=== PATIENT | female | born 1945 | race Caucasian/White ===

== ENCOUNTER 2024-03-24 11:02 | Inpatient (IN) | payer MEDICARE, OTHER ==
[~2024-03-24] VITALS: Ht 157.5 cm; Wt 70.9 kg
[2024-03-24] MEDS: METOPROLOL SUCC *XL* 25MG TAB (TopROL *XL*) PO SCH (09:00)
[2024-03-24] MEDS ORDERED: ELIQ5TAB PO (11:13)
[2024-03-24] MEDS ORDERED: METO1TAB32 PO (11:13)
[2024-03-24] MEDS ORDERED: CVSTAB PO (11:13)
[2024-03-24] MEDS ORDERED: PRIL20TA2 PO (11:13)
[2024-03-24] MEDS: PERCOCET 5MG/325MG TAB PO ONE (11:47)
[2024-03-24] MEDS ORDERED: PERC5TAB12 PO (13:46)
[2024-03-24] MEDS ORDERED: OMEP-173 PO (14:28)
[2024-03-24] MEDS ORDERED: MULT-40 PO (14:28)
[2024-03-24] MEDS ORDERED: HOME MED LIST COMPLETE! XX SCH ×2 (14:30→16:50)
[2024-03-24 14:46] LABS: HEMATOCRIT 42.7 % (36.0-47.0); HEMOGLOBIN 14.7 g/dl (12.0-15.5); MEAN CORPUSCULAR HEMOGLOBIN 32.4 pg (27.0-33.0); MEAN CORPUSCULAR HGB CONC 34.4 g/dl (32.0-36.5); MEAN CORPUSCULAR VOLUME 94.1 fl (80.0-96.0); PLATELET COUNT, AUTOMATED 197 10^3/uL (150-450); RED BLOOD COUNT 4.54 10^6/uL (4.00-5.40); WHITE BLOOD COUNT 10.5 10^3/uL (4.0-10.0)
[2024-03-24 15:00] LABS: INR 1.18; PROTHROMBIN TIME 14.7 SECONDS (12.5-14.5)
[2024-03-24] MEDS ORDERED: ACETAMINOPHEN TAB 650MG DOSE (2X325MG) PO PRN (15:10)
[2024-03-24 15:23] LABS: BLOOD UREA NITROGEN 14 MG/DL (9-23); CARBON DIOXIDE LEVEL 25 MMOL/L (20-31); CHLORIDE LEVEL 104 MMOL/L (98-107); CREATININE FOR GFR 0.63 MG/DL (0.55-1.30); GLOMERULAR FILTRATION RATE > 60.0 (>39); GLUCOSE, FASTING 117 MG/DL (74-106); POTASSIUM SERUM 3.8 MMOL/L (3.5-5.1); SODIUM LEVEL 137 MMOL/L (136-145)
[2024-03-24] MEDS: OMEPRAZOLE 20MG CAP PO SCH (15:28)
[2024-03-24 16:00] VITALS: BP 162/84; TEMP 99; O2SAT 97
[2024-03-24] MEDS: ONDANSETRON 4MG TAB PO PRN (16:15)
[2024-03-24] MEDS: ACETAMINOPHEN TAB 650MG DOSE (2X325MG) PO SCH (16:16)
[2024-03-24] MEDS ORDERED: OXYC1TAB23 PO (16:47)
[2024-03-24] MEDS ORDERED: METO1TAB7 PO (16:47)
[2024-03-24] MEDS ORDERED: STOO100C30 PO (16:48)
[2024-03-24] MEDS ORDERED: CVS1CHW13 PO (16:48)
[2024-03-24] MEDS: APIXABAN 5 MG TAB (ELIQUIS) PO SCH (21:07)
[2024-03-24] MEDS: DOCUSATE SODIUM 100MG CAPSULE PO SCH (21:07)
[2024-03-24] MEDS: METOPROLOL SUCC (TopROL XL) 50MG **XL** TAB PO SCH (21:10)
[2024-03-24] MEDS: PERCOCET 5MG/325MG TAB PO PRN (21:12)
[2024-03-24 21:17] VITALS: BP 183/80; TEMP 98.2; O2SAT 96
[2024-03-25] VITALS (10 sets, daily range): BP systolic 116–173; BP diastolic 50–103; TEMP 97–98.6; O2SAT 90–98
[2024-03-25] MEDS: CALCITONIN NASAL SPRAY 3.7ML BTL SCH (08:17)
[2024-03-25] MEDS: MOM 30ML SUSPENSION UDC PO PRN (08:17)
[2024-03-25] MEDS: ONDANSETRON 4MG 2ML VIAL IV PRN (08:36)
[2024-03-25] MEDS: METOPROLOL SUCC *XL* 25MG TAB (TopROL *XL*) PO ONE (08:36)
[2024-03-25 09:32] LABS: BASO % 0.3 % (0.0-1.0); EOS # 0.1 10^3/uL (0.0-0.5); EOS % 0.8 % (0.0-3.0); HEMATOCRIT 38.6 % (36.0-47.0); HEMOGLOBIN 13.3 g/dl (12.0-15.5); LYMPH % 28.3 % (24.0-44.0); MEAN CORPUSCULAR HEMOGLOBIN 32.6 pg (27.0-33.0); MEAN CORPUSCULAR HGB CONC 34.5 g/dl (32.0-36.5); MEAN CORPUSCULAR VOLUME 94.6 fl (80.0-96.0); MONO # 0.7 10^3/uL (0.0-0.8); MONO % 7.1 % (2.0-8.0); NEUTROPHILS # 6.6 10^3/uL (1.5-8.5); NEUTROPHILS % 63.1 % (36.0-66.0); PLATELET COUNT, AUTOMATED 197 10^3/uL (150-450); RED BLOOD COUNT 4.08 10^6/uL (4.00-5.40); WHITE BLOOD COUNT 10.5 10^3/uL (4.0-10.0)
[2024-03-25] MEDS: ONDANSETRON 4MG 2ML VIAL IV STA (09:37)
[2024-03-25 09:48] LABS: BLOOD UREA NITROGEN 18 MG/DL (9-23); CARBON DIOXIDE LEVEL 24 MMOL/L (20-31); CHLORIDE LEVEL 105 MMOL/L (98-107); CREATININE FOR GFR 0.71 MG/DL (0.55-1.30); GLOMERULAR FILTRATION RATE > 60.0 (>39); GLUCOSE, FASTING 103 MG/DL (74-106); MAGNESIUM LEVEL 2.1 MG/DL (1.8-2.4); SODIUM LEVEL 136 MMOL/L (136-145)
[2024-03-25] MEDS: NS 1,000 ML IV SCH (09:54)
[2024-03-25] MEDS ORDERED: METOPROLOL 5 MG/5 ML VIAL As Ordered ONE (12:52)
[2024-03-25] MEDS: METOCLOPRAMIDE INJ 10MG/2ML VIAL IV ONE (12:56)
[2024-03-25] MEDS: METOPROLOL 5 MG/5 ML VIAL IV STA (12:57)
[2024-03-25 14:07] LABS: GLOMERULAR FILTRATION RATE > 60.0 (>39)
[2024-03-25] MEDS: ASPIRIN 81MG CHEW TABLET PO ONE (14:26)
[2024-03-25] MEDS: ATORVASTATIN 20 MG TAB PO ONE (14:26)
[2024-03-25] MEDS: PERCOCET 5MG/325MG TAB PO PRN (14:32)
[2024-03-25] MEDS ORDERED: HEPARIN SOD (PORCINE) 5000UNITS/ML 1ML VIAL/SYRINGE IV PRN (16:55)
[2024-03-25] MEDS: HEPARIN SOD (PORCINE) 5000UNITS/ML 1ML VIAL/SYRINGE IV ONE (16:55)
[2024-03-25 17:15] LABS: HEMATOCRIT 42.5 % (36.0-47.0); HEMOGLOBIN 14.3 g/dl (12.0-15.5); MEAN CORPUSCULAR HEMOGLOBIN 31.7 pg (27.0-33.0); MEAN CORPUSCULAR HGB CONC 33.6 g/dl (32.0-36.5); MEAN CORPUSCULAR VOLUME 94.2 fl (80.0-96.0); PLATELET COUNT, AUTOMATED 225 10^3/uL (150-450); RED BLOOD COUNT 4.51 10^6/uL (4.00-5.40); WHITE BLOOD COUNT 11.4 10^3/uL (4.0-10.0)
[2024-03-25] MEDS: HEPARIN DRIP 25,000 UNITS in IV 1 EA IV SCH (18:23)
[2024-03-25] MEDS ORDERED: ENOXAPARIN 80MG/0.8ML SYRINGE (J1650 PER 10MG) SC SCH (21:00)
[2024-03-25] MEDS: METOPROLOL SUCC *XL* 25MG TAB (TopROL *XL*) PO SCH (21:03)
[2024-03-25] MEDS: AMIODARONE 200 MG TAB (PACERONE) PO SCH (21:03)
[2024-03-26] VITALS (8 sets, daily range): BP systolic 124–151; BP diastolic 60–97; TEMP 96.9–98; O2SAT 91–95
[2024-03-26 00:37] LABS: INR 1.36; PARTIAL THROMBOPLASTIN TIME 88.8 SECONDS (24.8-34.2); PROTHROMBIN TIME 16.4 SECONDS (12.5-14.5)
[2024-03-26] MEDS: PROMETHAZINE 25MG/ML 1ML VIAL IV ONE (04:15)
[2024-03-26 06:23] LABS: BASO % 0.1 % (0.0-1.0); HEMATOCRIT 38.2 % (36.0-47.0); LYMPH # 2.1 10^3/uL (1.5-5.0); LYMPH % 22.2 % (24.0-44.0); MEAN CORPUSCULAR VOLUME 94.1 fl (80.0-96.0); MONO # 0.7 10^3/uL (0.0-0.8); MONO % 6.9 % (2.0-8.0); NEUTROPHILS # 6.6 10^3/uL (1.5-8.5); NEUTROPHILS % 70.3 % (36.0-66.0); PLATELET COUNT, AUTOMATED 199 10^3/uL (150-450); RED BLOOD COUNT 4.06 10^6/uL (4.00-5.40); WHITE BLOOD COUNT 9.4 10^3/uL (4.0-10.0)
[2024-03-26 08:03] LABS: BLOOD UREA NITROGEN 16 MG/DL (9-23); CALCIUM LEVEL 8.3 MG/DL (8.3-10.6); CARBON DIOXIDE LEVEL 22 MMOL/L (20-31); CHLORIDE LEVEL 108 MMOL/L (98-107); CHOLESTEROL LEVEL 228 MG/DL (<200); CHOLESTEROL RISK RATIO 4.61 (<5); CREATININE FOR GFR 0.62 MG/DL (0.55-1.30); GLOMERULAR FILTRATION RATE > 60.0 (>39); GLUCOSE, FASTING 129 MG/DL (74-106); HDL CHOLESTEROL 49.4 MG/DL (>40); LDL CHOLESTEROL 153.2 MG/DL (<100); NON-HDL-C 178.6 MG/DL; POTASSIUM SERUM 3.8 MMOL/L (3.5-5.1); SODIUM LEVEL 139 MMOL/L (136-145); TRIGLYCERIDES LEVEL 127 MG/DL (<150)
[2024-03-26] MEDS: ASPIRIN 81MG CHEW TABLET PO SCH (09:26)
[2024-03-26] MEDS: ATORVASTATIN 20 MG TAB PO SCH (09:26)
[2024-03-26] MEDS: MORPHINE 2 MG/ML 1ML VIAL IV ONE (21:06)
[2024-03-26] MEDS ORDERED: NITROGLYCERIN 0.3MG SUBL TAB SL STA (21:34)
[2024-03-26] MEDS ORDERED: NITROGLYCERIN 0.4MG SUBL TABLET SL PRN (21:55)
[2024-03-26 22:17] LABS: INR 1.12; PARTIAL THROMBOPLASTIN TIME 34.1 SECONDS (24.8-34.2); PROTHROMBIN TIME 14.1 SECONDS (12.5-14.5)
[2024-03-26] MEDS: NITROGLYCERIN 0.4MG SUBL TABLET SL STA (22:17)
[2024-03-26] MEDS ORDERED: HEPARIN DRIP 25,000 UNITS in IV 1 EA IV SCH (23:35)
[2024-03-26] MEDS: HEPARIN SOD (PORCINE) 5000UNITS/ML 1ML VIAL/SYRINGE IV PRN (23:51)
[2024-03-27] VITALS (10 sets, daily range): BP systolic 109–144; BP diastolic 59–95; TEMP 96–96.6; O2SAT 94
[2024-03-27 00:22] LABS: HEMATOCRIT 36.1 % (36.0-47.0); HEMOGLOBIN 12.1 g/dl (12.0-15.5); MEAN CORPUSCULAR HEMOGLOBIN 32.4 pg (27.0-33.0); MEAN CORPUSCULAR HGB CONC 33.5 g/dl (32.0-36.5); MEAN CORPUSCULAR VOLUME 96.8 fl (80.0-96.0); PLATELET COUNT, AUTOMATED 193 10^3/uL (150-450); RED BLOOD COUNT 3.73 10^6/uL (4.00-5.40); WHITE BLOOD COUNT 8.8 10^3/uL (4.0-10.0)
[2024-03-27] MEDS: METOPROLOL TART 25 MG TABLET PO ONE (02:13)
[2024-03-27] MEDS: METOPROLOL 5 MG/5 ML VIAL IV SCH (03:23)
[2024-03-27] MEDS: dilTIAZem 25MG/5ML VIAL IV STA (04:11)
[2024-03-27] MEDS: HEPARIN DRIP 25,000 UNITS in IV 1 EA IV SCH (04:22)
[2024-03-27 06:36] LABS: BASO % 0.4 % (0.0-1.0); EOS # 0.1 10^3/uL (0.0-0.5); HEMATOCRIT 35.2 % (36.0-47.0); HEMOGLOBIN 11.8 g/dl (12.0-15.5); LYMPH # 3.1 10^3/uL (1.5-5.0); LYMPH % 30.1 % (24.0-44.0); MEAN CORPUSCULAR HEMOGLOBIN 32.3 pg (27.0-33.0); MEAN CORPUSCULAR HGB CONC 33.5 g/dl (32.0-36.5); MEAN CORPUSCULAR VOLUME 96.4 fl (80.0-96.0); MONO # 0.6 10^3/uL (0.0-0.8); MONO % 5.7 % (2.0-8.0); NEUTROPHILS # 6.3 10^3/uL (1.5-8.5); NEUTROPHILS % 62.3 % (36.0-66.0); PLATELET COUNT, AUTOMATED 193 10^3/uL (150-450); RED BLOOD COUNT 3.65 10^6/uL (4.00-5.40); WHITE BLOOD COUNT 10.2 10^3/uL (4.0-10.0)
[2024-03-27 07:03] LABS: BLOOD UREA NITROGEN 14 MG/DL (9-23); CALCIUM LEVEL 7.7 MG/DL (8.3-10.6); CARBON DIOXIDE LEVEL 25 MMOL/L (20-31); CHLORIDE LEVEL 110 MMOL/L (98-107); CREATININE FOR GFR 0.65 MG/DL (0.55-1.30); GLOMERULAR FILTRATION RATE > 60.0 (>39); GLUCOSE, FASTING 105 MG/DL (74-106); MAGNESIUM LEVEL 1.9 MG/DL (1.8-2.4); POTASSIUM SERUM 3.9 MMOL/L (3.5-5.1); SODIUM LEVEL 140 MMOL/L (136-145)
== END 2024-03-27 13:20 | disposition other institution (70) | DRG 552 ==
LOC: M ED 11:02 → M ED INP 14:31 → M MSPAV 16:06 → OBSVTOIN 18:19 → M PCU 03-25 13:50
PROVIDERS: ADMIT Internal Medicine; ATTEND Internal Medicine
PROC: B246ZZZ Ultrasonography of Right and Left Heart (ICD-10-PCS; principal; 2024-03-25)
DX: S32.030A Wedge compression fracture of third lumbar vertebra, initial encounter for closed fracture (principal); I47.10 Supraventricular tachycardia, unspecified; I48.92 Unspecified atrial flutter; I48.20 Chronic atrial fibrillation, unspecified; E78.5 Hyperlipidemia, unspecified; R07.89 Other chest pain; I27.20 Pulmonary hypertension, unspecified; K21.9 Gastro-esophageal reflux disease without esophagitis; W06.XXXA Fall from bed, initial encounter; Y92.009 Unspecified place in unspecified non-institutional (private) residence as the place of occurrence of the external cause; Y93.9 Activity, unspecified; Z79.01 Long term (current) use of anticoagulants; Z79.899 Other long term (current) drug therapy; Z88.8 Allergy status to other drugs, medicaments and biological substances